=== PATIENT | male | born 1955 | race American Indian/Alaskan Native ===

== ENCOUNTER 2017-09-28 10:55 | Emergency (ER) | payer OTHER ==
[2017-09-28 11:45] VITALS: BP 145/89
[2017-09-28] MEDS ORDERED: TORADOL IM ONE (14:25)
[2017-09-28 14:54] LABS: Bilirubin,Urine NEG (Negative); Blood,Urine NEG (Negative); Color,Urine Yellow (Yellow); Nitrite,Urine NEG (Negative); Protein,Urine <15 mg/dL mg/dL (Negative)
--- NOTE | 2017-09-28 15:05 | Emergency Department Report ---
ED General Adult HPI - General Chief complaint: Pain General Stated complaint: GROIN PAIN Time Seen by Provider: 09/28/17 14:24 Source: patient Mode of arrival: Wheelchair Limitations: No Limitations - History of Present Illness Initial comments: pt is a 62 y/o aam who presents for left thigh and groin pain x 2 weeks pt denies fall injury or trauma no swelling no n/v no change in bowel or bladder habbits pt is tolerating po intake without nv, pain described as 4/10 sharp exacerbated by movement, pain is relieved by rest, pt has hx of inguinal hernia right 20 yrs ago Onset/Timin -: Gradual, week(s) Location: lower extremity Radiation: other (groin) Severity scale (0 -10): 4 Quality: aching Consistency: intermittent Improves with: rest Worsens with: movement, other (activity bending or twisting ) Associated Symptoms: denies: fever/chills, nausea/vomiting, shortness of breath , weakness Treatments Prior to Arrival: none - Related Data Previous Rx's Medication Instructions Recorded Last Taken Type Acetaminophen 1,000 mg PO QID PRN #30 tablet 09/28/17 Unknown Rx Cyclobenzaprine [Flexeril] 10 mg PO BID PRN #20 tablet 09/28/17 Unknown Rx Diclofenac Sodium [Voltaren] 1 applicatio TP BID PRN #100 09/28/17 Unknown Rx gel..gram. Allergies Allergy/AdvReac Type Severity Reaction Status Date / Time No Known Allergies Allergy Unverified 09/28/17 11:40 ED Review of Systems ROS: Stated complaint: GROIN PAIN Other details as noted in HPI Constitutional: denies: chills, fever Eyes: denies: eye pain, eye discharge, vision change ENT: denies: ear pain, throat pain Respiratory: denies: cough, shortness of breath, wheezing Cardiovascular: denies: chest pain, palpitations Endocrine: no symptoms reported Gastrointestinal: denies: abdominal pain, nausea, diarrhea Genitourinary: denies: urgency, dysuria, frequency, hematuria, discharge, testicular pain, testicular mass Musculoskeletal: arthralgia. denies: back pain, joint swelling, myalgia Skin: denies: rash, lesions Neurological: denies: headache, weakness, paresthesias Psychiatric: denies: anxiety, depression Hematological/Lymphatic: denies: easy bleeding, easy bruising ED Past Medical Hx - Past Medical History Hx Hypertension: Yes - Surgical History Past Surgical History?: Yes Hx Cholecystectomy: Yes Additional Surgical History: hernia repair - Social History Smoking Status: Current Every Day Smoker Substance Use Type: None - Medications Home Medications: Home Medications Medication Instructions Recorded Confirmed Last Taken Type Acetaminophen 1,000 mg PO QID PRN #30 tablet 09/28/17 Unknown Rx Cyclobenzaprine [Flexeril] 10 mg PO BID PRN #20 tablet 09/28/17 Unknown Rx Diclofenac Sodium [Voltaren] 1 applicatio TP BID PRN #100 09/28/17 Unknown Rx gel..gram. ED Physical Exam - General Limitations: No Limitations General appearance: alert, in no apparent distress - Head Head exam: Present: atraumatic, normocephalic - Eye Eye exam: Present: normal appearance - ENT ENT exam: Present: mucous membranes moist - Neck Neck exam: Present: normal inspection - Respiratory Respiratory exam: Present: normal lung sounds bilaterally. Absent: respiratory distress - Cardiovascular Cardiovascular Exam: Present: regular rate, normal rhythm. Absent: systolic murmur, diastolic murmur, rubs, gallop - GI/Abdominal GI/Abdominal exam: Present: soft, normal bowel sounds - Rectal Rectal exam: Present: deferred - exam: Present: normal inspection, circumcision. Absent: testicular tenderness, urethral discharge, scrotal swelling, vertical testicular lie External exam: Present: normal external exam. Absent: erythema, swelling, lesions, lacerations, ecchymosis, bleeding - Extremities Exam Extremities exam: Present: normal inspection, full ROM, normal capillary refill. Absent: tenderness, pedal edema, joint swelling, calf tenderness - Expanded Lower Extremity Exam Left Hip exam: Present: normal inspection, full ROM. Absent: tenderness, swelling, abrasion, laceration, ecchymosis, deformity, crepidus, dislocation, erythema, external rotation, internal rotation, shortening, pelvic stability Upper Leg exam: Present: normal inspection, full ROM. Absent: tenderness, swelling, abrasion, laceration, ecchymosis, deformity, crepidus, dislocation, erythema Knee exam: Present: normal inspection, full ROM Lower Leg exam: Present: normal inspection, full ROM Ankle exam: Present: normal inspection, full ROM Foot/Toe exam: Present: normal inspection, full ROM Neuro vascular tendon exam: Present: no vascular compromise. Absent: pulse deficit, abnormal cap refill, motor deficit, sensory deficit, tendon deficit, extremity cold to touch, pallor, abnormal 2-point discrimination, decreased fine /light touch, foot drop, peroneal nerve deficit, significant pain with passive ROM of distal joint Gait: Positive: observed and normal - Back Exam Back exam: Present: normal inspection, full ROM. Absent: tenderness, CVA tenderness (R), CVA tenderness (L), muscle spasm, paraspinal tenderness, vertebral tenderness, rash noted - Neurological Exam Neurological exam: Present: alert, oriented X3, CN II-XII intact, normal gait, reflexes normal. Absent: motor sensory deficit - Psychiatric Psychiatric exam: Present: normal affect, normal mood - Skin Skin exam: Present: warm, dry, intact, normal color. Absent: rash ED Course Vital Signs 09/28/17 11:40 Temperature 97.9 F Pulse Rate 56 L Respiratory 18 Rate Blood Pressure 145/89 O2 Sat by Pulse 100 Oximetry ED Medical Decision Making - Lab Data Laboratory Tests 09/28/17 14:30 Urine Color Yellow Urine Turbidity Clear Urine pH 5.0 Ur Specific Needles 1.015 Urine Protein <15 mg/dl Urine Glucose (UA) Neg Urine Ketones Neg Urine Blood Neg Urine Nitrite Neg Urine Bilirubin Neg Urine Urobilinogen 2.0 Ur Leukocyte Esterase Neg Urine WBC (Auto) 1.0 Urine RBC (Auto) 4.0 - Medical Decision Making pt is a 62 y/o aam who presents for left thigh and groin pain x 2 weeks pt denies fall injury or trauma no swelling no n/v no change in bowel or bladder habbits pt is tolerating po intake without nv, pain described as 4/10 sharp exacerbated by movement, pain is relieved by rest, pt has hx of inguinal hernia right 20 yrs ago, exam : pt appears well nontoxi exam: abd: round bs x 4 qds normal abd soft nontender, no rebound no bruit no hernia no fluid shift no hernia, groin: no hernia no tenderness no swelling no erythema , scrotum testes x 2 nontender no swelling no erythema no thrills no mass, left thigh no tenderness no spasm no deformity no swelling no calf tenderness negative homans sign, ua: normal, pain is improve with toradol given in ed to 10/06 from 01/04 plan: tylenol 1000 mg po qid prn pain, voltaren gel prn pain , and follow up with pcp in 2-3 days , pt is tolerating po intake at this time, without n/v/d and denies hx of same there is no decrease or loss of bowel or bladder function . this is not likely a hernia, will tx for groin strain. Critical care attestation.: If time is entered above; I have spent that time in minutes in the direct care of this critically ill patient, excluding procedure time. ED Disposition Clinical Impression: Groin strain Qualifiers: Encounter type: initial encounter Laterality: left Qualified Code(s): S76.212A - Strain of adductor muscle, fascia and tendon of left thigh, initial encounter Disposition: TO HOME OR SELFCARE Is pt being admited?: No Does the pt Need Aspirin: No Condition: Good Instructions: Groin Strain (ED) Prescriptions: Acetaminophen 1,000 mg PO QID PRN #30 tablet PRN Reason: Pain Cyclobenzaprine [Flexeril] 10 mg PO BID PRN #20 tablet PRN Reason: Muscle Spasm Diclofenac Sodium [Voltaren] 1 applicatio TP BID PRN #100 gel..gram. PRN Reason: Pain Referrals: CLAUDIA COE MD [Staff Physician] - 3-5 Days Forms: Work/School Release Form(ED) Time of Disposition: 15:16
[2017-09-28] MEDS ORDERED: ULTRAM PO ONE (15:42)
[2017-09-28] MEDS ORDERED: NORCO 5/325 PO ONE (15:43)
== END 2017-09-28 15:49 | disposition home or self-care (01) ==
LOC: ED 10:55
DX: S76.212A Strain of adductor muscle, fascia and tendon of left thigh, initial encounter (principal); F17.200 Nicotine dependence, unspecified, uncomplicated; W22.8XXA Striking against or struck by other objects, initial encounter; Y93.89 Activity, other specified; Y92.89 Other specified places as the place of occurrence of the external cause; Y99.8 Other external cause status
CPT/HCPCS: 81001; 96372; 99283; J1885